=== PATIENT | female | born 1985 | race Caucasian/White ===

== ENCOUNTER 2017-11-16 14:55 | Day surgery (SDC) | payer OTHER ==
[2017-11-16 15:48] VITALS: BP 112/59; TEMP 98.7; BMI 25.4
--- NOTE | 2017-11-17 09:51 | HP ---
DATE OF SERVICE: 11/16/2017 CHIEF COMPLAINT: Fall. HISTORY OF PRESENT ILLNESS: At the time of presentation, Ms. Langley is a 32-year-old 2, par a 1 female, 36 weeks who presents after slipping in the parking lot and falling onto her right buttoc k. She denies any leg weakness or paresthesias. She denies any vaginal bleeding, leakage of fluid o r contractions. She reports good movement. care has been with Dr. Anderson and has bee n uncomplicated both in this and in her prior . REVIEW OF SYSTEMS: Limited review of systems per HPI. OBSTETRICAL HISTORY: As above. MEDICATIONS: vitamins. ALLERGIES: No known drug allergies. PHYSICAL EXAMINATION: VITAL SIGNS: Within normal limits. The patient is afebrile. GENERAL: Nontoxic appearing female, in no acute distress. OBSTETRIC: heart tracing is category 1, tocodynamometer is quiet to rare contractions. LABORATORY DATA AND STUDIES: The patient declines CBC and fibrinogen. ASSESSMENT AND PLAN: A 36-week intrauterine with category 1 tracing, rare contractio ns after a fall. Patient was observed for 4 hours. She is discharged home with abruption precaution s.
== END 2017-11-16 19:35 | disposition home or self-care (01) ==
LOC: L&D/OP 14:55 → ERS 14:55 → EDSTATUS 14:58 → L&D/OP 19:35
PROVIDERS: ATTEND Family Medicine
DX: Z04.3 Encounter for examination and observation following other accident (principal); Z3A.36 36 weeks gestation of pregnancy; Z79.899 Other long term (current) drug therapy; Z91.81 History of falling
CPT/HCPCS: 59025; 99283

== ENCOUNTER 2017-11-25 10:57 | Inpatient (IN) | payer OTHER ==
[2017-12-11] MEDS ORDERED: HYDROcodone/Acetaminophen 5/325 mg Tablet PO PRN ×2 (06:25→18:24)
[2017-12-11] MEDS ORDERED: Ibuprofen 800 MG TAB PO PRN (06:25)
[2017-12-11] MEDS ORDERED: Methylergonovine 0.2 MG/ML VIAL IM PRN ×2 (06:25→18:24)
[2017-12-11] MEDS ORDERED: Acetaminophen 500 MG TAB PO PRN (06:25)
[2017-12-11] MEDS ORDERED: Misoprostol 200 MCG TAB PR PRN (06:25)
[2017-12-11] MEDS ORDERED: Lidocaine 1% (PF) 30 ML VIAL SC PRN (06:25)
[2017-12-11] MEDS ORDERED: LR 500 ML/Oxytocin 10 units 500 ML IV SCH ×2 (06:25)
[2017-12-11] MEDS ORDERED: Ondansetron HCl/PF 4 MG/2 ML Vial IVP PRN ×2 (06:25→18:24)
[2017-12-11] MEDS ORDERED: Acetaminophen/Codeine 30-300mg Tablet PO PRN ×2 (06:25→18:24)
[2017-12-11] MEDS ORDERED: Promethazine HCl 25 MG/ML VIAL IM PRN (06:25)
[2017-12-11] MEDS: Lactated Ringer's 1,000 ML IV SCH (07:10)
[2017-12-11 07:29] LABS: Hemoglobin 13.1 g/dL (12.0-16.0); Mean Corpuscular HGB CONC 34.5 g/dL (32.0-36.0); Mean Corpuscular Hemoglobin 32.6 pg (27.0-31.0); Mean Corpuscular Volume 94.6 fl (81.0-99.0); Platelet Count 171 thou/uL (130-400); RBC Distribution Width 11.8 % (11.5-14.5); Red Blood Cell (RBC) Count 4.01 mill/uL (4.20-5.40); White Blood Cell (WBC) Count 7.3 thou/uL (4.8-10.8)
[2017-12-11 08:19] LABS: HBSAg Index 0.14 S/CO (0-0.99); Hep B Surf Ag Non-Reactive S/CO (NonReactive)
[2017-12-11 08:20] LABS: Syphilis Antibody Nonreactive (Nonreactive); Syphilis Antibody Index 0.03 S/CO (<1.00 Non-Reactive)
[2017-12-11 16:28] VITALS: BMI 26.5
[2017-12-11] MEDS: LR / Pitocin 40 units/1000 ml 1,000 ML IV PRN ×2 (16:31→17:29)
[2017-12-11] MEDS ORDERED: Milk Of Magnesia 30 ML UDCUP PO PRN (18:24)
[2017-12-11] MEDS ORDERED: Lanolin Ointment 7 GM TUBE TOP PRN (18:24)
[2017-12-11] MEDS ORDERED: LR / Pitocin 40 units/1000 ml 1,000 ML IV SCH (18:24)
[2017-12-11] MEDS ORDERED: Preparation H Ointment 28 GM TUBE PR PRN (18:24)
[2017-12-11] MEDS ORDERED: Bisacodyl 10 MG SUPP PR PRN (18:24)
[2017-12-11] MEDS ORDERED: Benzocaine/Menthol 20-0.5% 60 ML CAN TOP PRN (18:24)
[2017-12-12] MEDS: Ibuprofen 800 MG TAB PO SCH ×2 (01:05→09:53)
[2017-12-12] MEDS: Ferrous Sulfate 325 MG TAB PO SCH ×3 (03:59→17:13)
[2017-12-12] MEDS: Docusate Calcium (SURFAK) 240 MG CAP PO SCH ×2 (03:59→09:51)
[2017-12-12] MEDS: Prenatal Vitamin 1 TAB PO SCH ×2 (03:59→09:51)
[2017-12-12 13:42] VITALS: BP 107/52; TEMP 98.4
[2017-12-12] MEDS: Lactated Ringer's 1,000 ML IV SCH (15:50)
== END 2017-12-12 17:50 | disposition home or self-care (01) | DRG 775 ==
LOC: EDSTATUS 14:00 → L&D 12-11 06:07 → EEVIPCON 12-11 06:07 → 3SW 12-11 18:23
PROVIDERS: ADMIT Family Medicine; ATTEND Family Medicine
PROC: 10E0XZZ Delivery of Products of Conception, External Approach (ICD-10-PCS; principal; 2017-12-11)
DX: O32.0XX0 Maternal care for unstable lie, not applicable or unspecified (principal); Z37.0 Single live birth; Z3A.39 39 weeks gestation of pregnancy
CPT/HCPCS: 85027; 86780; 87340; C1726; J2001; J7120

== ENCOUNTER 2022-08-20 14:15 | Outpatient (CLI) | payer BC | END 2022-08-20 14:16 | disposition home or self-care (01) | LOC: BICRAD 14:15 | PROVIDERS: ATTEND Family Medicine | DX: M25.562 Pain in left knee (principal) ==

== ENCOUNTER 2025-06-09 11:37 | Outpatient (CLI) | payer BC | END 2025-06-09 11:38 | disposition home or self-care (01) | LOC: BICMAMMO 11:37 | PROVIDERS: ATTEND Family Medicine | DX: Z12.31 Encounter for screening mammogram for malignant neoplasm of breast (principal) | CPT/HCPCS: 77063; 77067 ==